=== PATIENT | male | born 1975 | race Caucasian/White ===

== ENCOUNTER 2024-09-18 08:47 | Emergency (ER) | payer OTHER ==
[~2024-09-18] VITALS: Ht 170.2 cm; Wt 95.0 kg
[2024-09-18 09:10] VITALS: O2SAT 96
[2024-09-18] MEDS: ACETAMINOPHEN 325MG TABLET PO ONE (10:33)
[2024-09-18] MEDS: IBUPROFEN 400MG TABLET PO ONE (10:33)
[2024-09-18] MEDS: ONDANSETRON 4MG ODT PO ONE (10:34)
[2024-09-18] MEDS ORDERED: TOPUD PO (11:42)
[2024-09-18] MEDS ORDERED: IBUP-2028 MT (11:42)
[2024-09-18] MEDS ORDERED: GUAI237L83 MT (11:43)
[2024-09-18 11:49] VITALS: BP 139/88; PULSE 92; RESP 16; TEMP 37.1; O2SAT 98
== END 2024-09-18 11:53 | disposition home or self-care (01) ==
LOC: ER 08:47
DX: J06.9 Acute upper respiratory infection, unspecified (principal); B97.89 Other viral agents as the cause of diseases classified elsewhere; Z20.822 Contact with and (suspected) exposure to COVID-19
CPT/HCPCS: 99284; 87426; 87804 ×2; Q0162